=== PATIENT | female | born 1995 | race Caucasian/White ===

== ENCOUNTER 2021-04-25 17:24 | Emergency (ER) | payer OTHER ==
[~2021-04-25] VITALS: Ht 172.7 cm; Wt 81.7 kg
== END 2021-04-25 19:20 | disposition home or self-care (01) ==
LOC: ER 17:24
DX: S01.111A Laceration without foreign body of right eyelid and periocular area, initial encounter (principal); Z23 Encounter for immunization; W21.04XA Struck by golf ball, initial encounter
CPT/HCPCS: 12013; 90714; 99282